=== PATIENT | male | born 1970 | race Two or more races ===

== ENCOUNTER 2019-03-09 02:02 | Inpatient (IN) | payer MEDICAID ==
[~2019-03-09] VITALS: Ht 175.3 cm; Wt 68.2 kg
[2019-03-09] MEDS ORDERED: SPIR25TA6 PO (02:35)
[2019-03-09] MEDS ORDERED: TERA2CAP4 PO (02:35)
[2019-03-09] MEDS ORDERED: MONT10TA25 PO (02:35)
[2019-03-09] MEDS ORDERED: METO-358 PO (02:35)
[2019-03-09] MEDS ORDERED: SERT50TA PO (02:35)
[2019-03-09] MEDS ORDERED: FURO20TA4 PO (02:35)
[2019-03-09] MEDS ORDERED: ALBU8.5H8 INH (02:36)
[2019-03-09] MEDS ORDERED: MOME13HF2 IH (02:36)
[2019-03-09] MEDS ORDERED: LISI40TA4 PO (02:36)
[2019-03-09 02:57] LABS: BASOPHILS # (AUTO) 0.1 K/uL (0.0-8.0); EOSINOPHILS % (AUTO) 0.1 % (0.0-7.0); HEMATOCRIT 42.4 % (36.7-47.1); HEMOGLOBIN 13.8 g/dL (12.5-16.3); LYMPHOCYTES # (AUTO) 1.3 K/uL (20.0-40.0); LYMPHOCYTES % (AUTO) 24.6 % (20.5-51.5); MEAN CORPUSCULAR HEMOGLOBIN 28.4 uug (23.8-33.4); MEAN CORPUSCULAR HGB CONC 33 g/dL (32.5-36.3); MEAN CORPUSCULAR VOLUME 86.9 fL (73.0-96.2); MONOCYTES # (AUTO) 0.6 K/uL (2.0-10.0); MONOCYTES % (AUTO) 10.7 % (0.0-11.0); NEUTROPHILS # (AUTO) 3.4 K/uL (1.8-8.9); NEUTROPHILS % (AUTO) 63.6 % (38.5-71.5); PLATELET COUNT (AUTO) 142 K/uL (152-348); RED BLOOD CELL COUNT(AUTO) 4.88 MIL/uL (4.06-5.63); WHITE BLOOD COUNT (AUTO) 5.4 K/uL (3.6-10.2)
[2019-03-09] MEDS ORDERED: NITROGLYCERIN OINT 1 GM PACKET TP ONE ×2 (02:59→03:00)
[2019-03-09] MEDS ORDERED: FUROSEMIDE 40 MG/4 ML VIAL ONE (02:59)
[2019-03-09] MEDS ORDERED: FUROSEMIDE 20 MG/2 ML VIAL IV ONE (03:00)
[2019-03-09] MEDS ORDERED: MORPHINE SULFATE 4 MG/1 ML DISP.SYRIN IV ONE (03:00)
[2019-03-09] MEDS ORDERED: MORPHINE SULFATE 4 MG/1 ML DISP.SYRIN ONE (03:00)
[2019-03-09 03:03] LABS: ABG BASE EXCESS -1.3 mmol/L; ABG HCO3 21.3 mmol/L; ABG PH 7.469 (7.350-7.450); ABG PO2 69.3 mmHg (75.0-100.0); ABG SITE RIGHT RADIAL; ABG TOTAL HEMOGLOBIN 14.3 G/dL (13.5-18.0); COHb 1.6 % (0.5-1.5); MetHb 0.3 % (0.0-1.5); VENT MODE ROOM AIR
[2019-03-09 03:05] LABS: CREATININE 1.1 mg/dL (0.6-1.3); POTASSIUM 4.2 mmol/L (3.5-5.1)
[2019-03-09 03:18] LABS: BILIRUBIN,DIRECT 0.6 mg/dL (0.0-0.2); BILIRUBIN,TOTAL 1.2 mg/dL (0.2-1.0); TOTAL PROTEIN, SERUM 7.4 g/dL (6.4-8.2)
--- NOTE | 2019-03-09 03:35 | NUR ---
Paged [facility] for panel call per Dr. Yarbrough request.
[2019-03-09] MEDS ORDERED: MAGNESIUM HYDROXIDE 30 ML LIQUID UDC PO PRN (03:45)
[2019-03-09] MEDS ORDERED: MORPHINE SULFATE 2 MG/1 ML DISP.SYRIN IV PRN ×2 (03:45→08:15)
[2019-03-09] MEDS ORDERED: ACETAMINOPHEN 325 MG TABLET PO PRN (03:45)
[2019-03-09] MEDS ORDERED: ALBUTEROL SULFATE 2.5 MG/3 ML NEBU NEB PRN (03:45)
[2019-03-09] MEDS ORDERED: ONDANSETRON 4 MG/2 ML VIAL IV PRN (03:45)
[2019-03-09] MEDS ORDERED: HYDROCODONE/APAP 5-325MG TABLET PO PRN (03:45)
[2019-03-09] MEDS ORDERED: TEMAZEPAM 15 MG CAPSULE PO PRN (03:45)
--- NOTE | 2019-03-09 03:47 | NUR ---
Pt. admitted to Telemetry, under care of Dr. Jae Case. Diagnosis: Congestive Heart Failure Belongs List completed. MRSA swab done.
--- NOTE | 2019-03-09 04:10 | NUR ---
PT WAS BROUGHT IN TO FLOOR VIA GURNEY FROM ER. ADMITTED TO TELE UNDER LILI MOSQUERA NP. INITIATED ADMISSION ASSESSMENTS. PT WAS ACCOMPANIED BY . BELONGING LISTS REVIEWED.
[2019-03-09 04:50] VITALS: BP 112/79
--- NOTE | 2019-03-09 06:34 | NUR ---
PT IN BED RESTING, SINUS GAYE/ SR ON TELE. LOWEST HR 37 AND 60S. NO C/O PAIN DURING SHIFT.
--- NOTE | 2019-03-09 08:00 | NUR ---
IN BED AWAKE ALERT AND RESPOND TO QUESTIONS APPROPRIATELY., SPEECH SLIGHTLY GARBLED. CONTINUE TELE OBSERVATION. AWAITING SPEECH FOR SWALLOW EVAL
[2019-03-09] MEDS ORDERED: LISINOPRIL 10 MG TABLET PO SCH (09:00)
[2019-03-09] MEDS: FLUTICASONE/VILANTEROL 1 EACH BLST.W.DEV INH SCH (09:01)
[2019-03-09] MEDS: SPIRONOLACTONE 25 MG TABLET PO SCH (09:02)
[2019-03-09] MEDS: FUROSEMIDE 20 MG TABLET PO SCH (09:02)
[2019-03-09] MEDS: LISINOPRIL 20 MG TABLET PO SCH (09:02)
[2019-03-09] MEDS: SERTRALINE HCL 50 MG TABLET PO SCH (09:02)
[2019-03-09] MEDS: METOPROLOL SUCCINATE XL 50 MG TAB.SR.24H PO SCH (09:04)
[2019-03-09] MEDS ORDERED: BUMETANIDE INJ 4 MG in IV DEXTROSE 5% 24 ML IV ONE (11:30)
[2019-03-09 11:45] VITALS: BP 113/81
--- NOTE | 2019-03-09 13:00 | NUR ---
SEEN BY DR ASIF NOTED RESULTS OF ECHO WITH ORDER TO START ON BUMEX DRIP X4 HRS.
--- NOTE | 2019-03-09 14:00 | NUR ---
SEEN BY DR GRAY FOR CARDIO CONSULTATION, SEE NOTES. DC PLANNING INITIATED SEE GERMAN TEACHER NOTES
[2019-03-09 16:14] VITALS: BP 108/76
[2019-03-09] MEDS: MONTELUKAST SODIUM 10 MG TABLET PO SCH (17:23)
--- NOTE | 2019-03-09 18:31 | NUR ---
CONTINUE TELE OBSERVATION, NO SS OF CHEST PAIN OR DISTRESS. COMPLETED BUMEX DRIP ORDERED
--- NOTE | 2019-03-09 19:44 | NUR ---
PATIENT RECEIVED IN BED SLEEPING BUT AROUSABLE. HR 58 SINUS GAYE ON TELE. WILL CONTINUE TO MONITOR.
[2019-03-09 20:13] VITALS: BP 104/74
[2019-03-09] MEDS: TERAZOSIN 1 MG CAPSULE PO SCH (20:19)
[2019-03-10 00:20] VITALS: BP 110/76
[2019-03-10 04:00] VITALS: BP 121/87
[2019-03-10 06:33] LABS: BASOPHILS % (AUTO) 0.4 % (0.0-2.0); EOSINOPHILS % (AUTO) 0.2 % (0.0-7.0); HEMATOCRIT 41.6 % (36.7-47.1); LYMPHOCYTES # (AUTO) 1.2 K/uL (20.0-40.0); LYMPHOCYTES % (AUTO) 25.7 % (20.5-51.5); MEAN CORPUSCULAR HEMOGLOBIN 28.4 uug (23.8-33.4); MEAN CORPUSCULAR HGB CONC 34 g/dL (32.5-36.3); MEAN CORPUSCULAR VOLUME 84.6 fL (73.0-96.2); MONOCYTES # (AUTO) 0.3 K/uL (2.0-10.0); MONOCYTES % (AUTO) 5.9 % (0.0-11.0); NEUTROPHILS # (AUTO) 3.1 K/uL (1.8-8.9); NEUTROPHILS % (AUTO) 67.8 % (38.5-71.5); PLATELET COUNT (AUTO) 136 K/uL (152-348); RED BLOOD CELL COUNT(AUTO) 4.92 MIL/uL (4.06-5.63); WHITE BLOOD COUNT (AUTO) 4.5 K/uL (3.6-10.2)
--- NOTE | 2019-03-10 06:43 | NUR ---
PATIENT IS IN BED SLEEPING BUT EASILY AROUSABLE. PATIENT IS IN NO DISTRESS AT THIS TIME. PATIENT ON TELE SINUS GAYE TO SINUS RHYTHM. HR IS 66 AT THIS TIME
[2019-03-10 06:48] LABS: CREATININE 1.3 mg/dL (0.6-1.3); MAGNESIUM 1.4 mg/dL (1.8-2.4); PHOSPHOROUS 3.7 mg/dL (2.5-4.9); POTASSIUM 3.4 mmol/L (3.5-5.1)
[2019-03-10 07:00] LABS: THYROID STIMULATING HORMONE 1.558 mIU/mL (0.358-3.740)
--- NOTE | 2019-03-10 08:00 | NUR ---
RESTING COMFORTABLY IN BED WITH EYES CLOSED NO SS OF PAIN OR DISTRESS, CONTINUE WITH TELE MONITORING SR/SB ON MONITOR
[2019-03-10] MEDS: SPIRONOLACTONE 25 MG TABLET PO SCH (08:21)
[2019-03-10] MEDS: LISINOPRIL 20 MG TABLET PO SCH (08:21)
[2019-03-10] MEDS: FUROSEMIDE 20 MG TABLET PO SCH (08:22)
[2019-03-10] MEDS: SERTRALINE HCL 50 MG TABLET PO SCH (08:22)
[2019-03-10] MEDS: METOPROLOL SUCCINATE XL 50 MG TAB.SR.24H PO SCH (08:23)
[2019-03-10] MEDS: FLUTICASONE/VILANTEROL 1 EACH BLST.W.DEV INH SCH (08:24)
[2019-03-10] MEDS: MAGNESIUM SULFATE/D5W 100 ML IV SCH ×4 (09:27→13:55)
[2019-03-10] MEDS ORDERED: POTASSIUM CHLORIDE 20 MEQ TAB.PRT.SR PO ONE (09:30)
[2019-03-10 11:28] VITALS: BP 120/91
--- NOTE | 2019-03-10 11:30 | NUR ---
SEEN BY ZHAO ASIF FOR MEDICAL FOLLOW-UP SEE NOTES
--- NOTE | 2019-03-10 13:41 | NUR ---
AWAITING FOR [facility] FOR CONTINUITY OF CARE. SEE ELASTIC ATTACHER CH[employer]ST[employer] NOTES
[2019-03-10 15:45] VITALS: BP 101/67
[2019-03-10] MEDS: MONTELUKAST SODIUM 10 MG TABLET PO SCH (17:23)
--- NOTE | 2019-03-10 17:32 | NUR ---
[facility] RESULTS POSITIVE, CALLED TO DR ZHAO ASIF WITH ORDERS
--- NOTE | 2019-03-10 19:15 | NUR ---
Received patient in bed awake, A&Ox4. No complaints of pain at this time. Not in distress. Patient on diagnostic cardiac sonographer. Patient requesting to take a shower, will ask MD for orders. Bed kept in low and locked position w/ side rails up x 2. Call light within reach
--- NOTE | 2019-03-10 19:40 | NUR ---
Received order from Dr. Gaona, [place] to shower, assisted patient to shower room.
[2019-03-10 20:00] VITALS: BP 111/81
[2019-03-10] MEDS: MUPIROCIN 2% OINT 22 GM TUBE NS SCH (20:53)
[2019-03-10] MEDS: TERAZOSIN 1 MG CAPSULE PO SCH (20:53)
--- NOTE | 2019-03-10 23:00 | NUR ---
Seen and examined by Dr. Luther w/ n.o to increase Lasix to 40mg PO daily, noted.
[2019-03-11] VITALS: BP 105/76
[2019-03-11 04:00] VITALS: BP 107/72
--- NOTE | 2019-03-11 06:43 | NUR ---
Patient slept through out the night. Patient was cooperative w/ nursing care. All needs met. Will endorse to morning shift
[2019-03-11 07:24] LABS: BASOPHILS % (AUTO) 0.8 % (0.0-2.0); EOSINOPHILS % (AUTO) 0.2 % (0.0-7.0); HEMATOCRIT 43.3 % (36.7-47.1); HEMOGLOBIN 14.5 g/dL (12.5-16.3); LYMPHOCYTES # (AUTO) 1.6 K/uL (20.0-40.0); LYMPHOCYTES % (AUTO) 35.9 % (20.5-51.5); MEAN CORPUSCULAR HEMOGLOBIN 28.5 uug (23.8-33.4); MEAN CORPUSCULAR HGB CONC 34 g/dL (32.5-36.3); MEAN CORPUSCULAR VOLUME 85.2 fL (73.0-96.2); MONOCYTES # (AUTO) 0.6 K/uL (2.0-10.0); MONOCYTES % (AUTO) 13.2 % (0.0-11.0); NEUTROPHILS # (AUTO) 2.2 K/uL (1.8-8.9); NEUTROPHILS % (AUTO) 49.9 % (38.5-71.5); PLATELET COUNT (AUTO) 133 K/uL (152-348); RED BLOOD CELL COUNT(AUTO) 5.08 MIL/uL (4.06-5.63); WHITE BLOOD COUNT (AUTO) 4.5 K/uL (3.6-10.2)
[2019-03-11 07:29] LABS: CREATININE 1.1 mg/dL (0.6-1.3); PHOSPHOROUS 4.1 mg/dL (2.5-4.9); POTASSIUM 3.7 mmol/L (3.5-5.1)
--- NOTE | 2019-03-11 07:30 | NUR ---
RESTING COMFORTABLY IN BED. PT STATES HAVING NO CHEST PAIN AT THIS TIME. NO SIGNS OR SYMPTOMS OF PAIN OR DISTRESS. WILL CONTINUE WITH TELE MONITORING SR/SB ON MONITOR. SIGNIFICANT OTHER AT BEDSIDE.
[2019-03-11] MEDS: FLUTICASONE/VILANTEROL 1 EACH BLST.W.DEV INH SCH (08:33)
[2019-03-11] MEDS: SERTRALINE HCL 50 MG TABLET PO SCH (08:36)
[2019-03-11] MEDS: SPIRONOLACTONE 25 MG TABLET PO SCH (08:37)
[2019-03-11] MEDS: LISINOPRIL 20 MG TABLET PO SCH (08:37)
[2019-03-11] MEDS: METOPROLOL SUCCINATE XL 50 MG TAB.SR.24H PO SCH (08:41)
[2019-03-11] MEDS: MUPIROCIN 2% OINT 22 GM TUBE NS SCH (09:00)
[2019-03-11] MEDS ORDERED: FUROSEMIDE 20 MG TABLET PO SCH (09:00)
[2019-03-11] MEDS ORDERED: FUROSEMIDE 40 MG TABLET PO SCH (09:00)
[2019-03-11] MEDS ORDERED: FURO40TA5 PO (10:11)
--- NOTE | 2019-03-11 11:00 | NUR ---
PT COMPLAINS OF CHEST PAIN LEVEL 8. PT STATES FEELING HE HAS TO BURP PRESSURE. NON RADIATING IN THE MIDDLE OF CHEST. O2 PLACED VIA NC @ 2L/M. BP 109/69 HR 58 SATS 99% ON 2L/M O2. EKG ORDERED STAT. DR ASIF AWARE OF PT'S CONDITION. DR ASIF IN ROOM. WILL CONTINUE TO MONITOR.
[2019-03-11 11:49] VITALS: BP 91/58
--- NOTE | 2019-03-11 12:00 | NUR ---
EKG result given to Dr. Gaona, cleared for discharge, spoke to patient and . DC instruction given to patient, verbalized understanding. Saline lock removed. Tele removed. Went home per wheelchair in fair condition, denies chest pain, not in distress, afebrile
== END 2019-03-11 13:45 | disposition home or self-care (01) | DRG 194 ==
LOC: ER 02:06 → TELE3 03:46
PROVIDERS: ADMIT Nurse Practitioner Acute Care; ATTEND Nurse Practitioner Acute Care
DX: I13.0 Hypertensive heart and chronic kidney disease with heart failure and stage 1 through stage 4 chronic kidney disease, or unspecified chronic kidney disease (principal); N17.0 Acute kidney failure with tubular necrosis; B57.2 Chagas' disease (chronic) with heart involvement; D69.6 Thrombocytopenia, unspecified; E11.22 Type 2 diabetes mellitus with diabetic chronic kidney disease; E83.42 Hypomagnesemia; I50.23 Acute on chronic systolic (congestive) heart failure; I50.43 Acute on chronic combined systolic (congestive) and diastolic (congestive) heart failure; I42.0 Dilated cardiomyopathy; J44.9 Chronic obstructive pulmonary disease, unspecified; Z79.51 Long term (current) use of inhaled steroids; N18.9 Chronic kidney disease, unspecified; K21.9 Gastro-esophageal reflux disease without esophagitis; Z79.899 Other long term (current) drug therapy; Z87.891 Personal history of nicotine dependence; Z88.6 Allergy status to analgesic agent; Z80.42 Family history of malignant neoplasm of prostate; Z87.01 Personal history of pneumonia (recurrent); Z90.49 Acquired absence of other specified parts of digestive tract; Z86.19 Personal history of other infectious and parasitic diseases; F15.188 Other stimulant abuse with other stimulant-induced disorder; I25.10 Atherosclerotic heart disease of native coronary artery without angina pectoris; E87.6 Hypokalemia
CPT/HCPCS: 36415; 36600; 70030-TC; 71045; 83605; 83690; 83735; 84100; 84443; 85025; 85730; 87040; 93005; 93307; G0378; J1940; J2270; J3475; J3490; J7050; J7060